=== PATIENT | male | born 1955 | race Caucasian/White ===

== ENCOUNTER → 2025-03-15 07:52 | Outpatient (REF) | payer OTHER, SELFPAY | LOC: HWRAD 07:52 | PROVIDERS: ATTENDING PHYSICIAN Psychiatry & Neurology Behavioral Neurology & Neuropsychiatry; FAMILY PHYSICIAN Family Medicine | DX: M25.511 Pain in right shoulder (principal) | CPT/HCPCS: 73030 ==